=== PATIENT | female | born 1995 | race Caucasian/White ===

== ENCOUNTER 2017-11-14 17:10 | Emergency (ER) | payer OTHER ==
[~2017-11-14] VITALS: Ht 154.9 cm; Wt 70.8 kg
[~2017-11-14 17:10] MED LIST: ALBUAER2 INH
[2017-11-14 17:19] VITALS: TEMP 37; Ht 154.9 cm; Wt 70.8 kg
[2017-11-14] MEDS ORDERED: ALBUT/IPRATROP 3MG/0.5MG NEB 3 ML VIAL INH STA (17:59)
[2017-11-14] MEDS ORDERED: PSEUDOEPHEDRINE HCL 30 MG TAB PO STA (17:59)
[2017-11-14] MEDS ORDERED: METHYLPREDNISOLONE 125 MG VIAL IV STA (17:59)
[2017-11-14] MEDS ORDERED: SODIUM CHLORIDE 0.9% 1000ML 1,000 ML IV ONE (18:00)
[2017-11-14] MEDS ORDERED: BENZONATATE 100MG CAP PO ONE (18:00)
[2017-11-14] MEDS ORDERED: AMPH20CA3 PO (18:08)
[2017-11-14 18:31] LABS: BASO % 0.3 %; BASO ABS # 0.03 K/uL (0-0.2); EOS % 0.9 %; HEMATOCRIT 41.2 % (37-47); HEMOGLOBIN 14.1 g/dL (12.0-16.0); IG# 0.05 K/uL (0.00-0.02); LYMPH % 21.7 %; LYMPH ABS # 2.49 K/uL (1.2-3.4); MEAN CORPUSCULAR HEMOGLOBIN 31.5 pg (25-34); MEAN CORPUSCULAR HGB CONC 34.2 g/dl (32-36); MEAN PLATELET VOLUME 8.6 fL (7.4-10.4); MONO % 10.5 %; MONO ABS # 1.21 K/uL (0.11-0.59); NEUT % 66.2 %; NEUT ABS # 7.62 K/uL (1.4-6.5); PLATELET COUNT 279 K/uL (130-400); RED CELL DISTRIBUTION WIDTH CV 13.6 % (11.5-14.5); RED CELL DISTRIBUTION WIDTH SD 45.4 fL (36.4-46.3)
[2017-11-14 18:49] LABS: ALBUMIN 3.4 gm/dl (3.4-5.0); ALT/SGPT 22 U/L (12-78); AST/SGOT 16 U/L (15-37); BLOOD UREA NITROGEN 10 mg/dl (7-18); CALCIUM 8.7 mg/dl (8.5-10.1); CARBON DIOXIDE 27 mmol/L (21-32); CREATININE 0.69 mg/dl (0.60-1.20); GLUCOSE 109 mg/dl (70-99); LIPASE 210 U/L (73-393); POTASSIUM 3.8 mmol/L (3.5-5.1); SODIUM 140 mmol/L (136-145)
[2017-11-14 18:52] LABS: ALKALINE PHOSPHATASE 101 U/L (45-117); TOTAL PROTEIN 7.3 gm/dl (6.4-8.2)
--- NOTE | 2017-11-14 19:34 | DIAGNOSTIC IMAGING REPORT ---
ABDOMEN 2VIEW W/PA CHEST RTN HISTORY: 22 years-old Female cough, abd pain acute cough with generalized abdominal pain COMPARISON: Chest radiographs 11/05/2012 TECHNIQUE: PA view of the chest with erect and supine views of the abdomen FINDINGS: Cardiomediastinal and hilar silhouettes are within normal limits. There is no pneumothorax, pleural effusion, focal airspace consolidation or overt pulmonary edema. Bones of the chest appear grossly intact. Mild to moderate stool volume throughout the colon. The bowel gas pattern is nonobstructive. No pneumatosis or pneumoperitoneum. No urolith identified. No fracture. IMPRESSION: 1. No acute process of the chest. 2. Nonobstructive bowel gas pattern without pneumoperitoneum. The above report was generated using voice recognition software. It may contain grammatical, syntax or spelling errors. Electronically signed by: Lewis Henry M.D. 11/14/2017 7:33 PM Dictated Date/Time: 11/14/2017 7:31 PM
[2017-11-14] MEDS ORDERED: VNTHFA/IN INH (20:22)
[2017-11-14] MEDS ORDERED: BENZ100C18 PO (20:22)
[2017-11-14 20:30] VITALS: BP 120/89; PULSE 98; O2SAT 98
--- NOTE | 2017-11-15 00:12 | EMERGENCY ROOM VISIT NOTE ---
ED Visit Note First contact with patient: 17:39 Chief Complaint: Sore throat, cough and abdominal pain. History of Present Illness: Ms. Garcia is a 22-year-old white female who ambulates into the ED accompanied by her mother and multiple male friends complaining of throat pain, productive cough and lower abdominal pain. Historically patient and mother reports patient had asthma as a younger child and irritable bowel syndrome. Patient reports her throat pain started approximately 1 month ago. She describes this as an achy sensation. She rates her discomfort 7/10. Her pain is nonradiating. Her pain worsens with swallowing. She has not identified any alleviating factors related to the pain. She reports she has been using NyQuil without relief of her discomfort. Associated with her pain she reports she has a productive cough of greenish sputum. Her cough worsens with positional change and any deep inspiration. She has not identified any alleviating factors related to the cough. Associated with her cough she reports intermittently she does hear herself wheezing and feels short of breath. Lastly patient complaining of diffuse lower abdominal pain. She reports this has been ongoing but intermittent for the last month. It is not side prominent. She describes her pain as a cramping sensation. She rates this discomfort 3/10 but reports she is currently pain-free. She has not identified any aggravating or alleviating factors related to this discomfort. She has not taken any medications for this discomfort prior to arrival at the hospital. Associated with her pain she reports she has been having episodes of light brown watery stools. She denies fevers, chills, sweats, skin eruptions, skin color changes, ear drainage, painful talking, drooling, inability to swallow, neck pain/stiffness, headaches, dizziness, hemoptysis, bloody stool, black/tarry stool, urinary symptoms, back pain, vaginal bleeding, vaginal discharge. Review of Systems: As noted above in history of present illness. All body systems were reviewed and found to be negative as noted above. Past Medical History: As previously noted, attention deficit disorder. Current Medications: Adderall. Allergies to Medications: Ciprofloxacin, codeine, Bactrim and nitrofurantoin. Social History: Patient is not currently employed; she feels safe in her home environment; she admits to tobacco and alcohol use. Physical Examination: Vital Signs: Date Time Temp Pulse Resp B/P (MAP) Pulse Ox O2 Delivery O2 Flow Rate FiO2 11/14/17 20:30 98 20 120/89 98 11/14/17 19:53 100 20 121/85 97 11/14/17 17:22 98 Room Air 11/14/17 17:19 37.0 104 20 124/81 98 Room Air GENERAL: 22-year-old female in mild distress due to symptoms, nontoxic-appearing , afebrile and hemodynamically stable. NEUROLOGICAL: Awake, alert and oriented to person, place and time. Answering questions appropriately and following commands. Normal gait. Good hand eye coordination. No focal motor sensory deficits. SKIN: Warm, dry and pink. No soft tissue eruptions or trauma noted. HEENT: Atraumatic and normocephalic. Mild erythema over the frontal sinuses without tenderness and no erythema or tenderness over the maxillary sinuses. PERRLA. Sclera white and conjunctiva pink without drainage. No drainage from naris but with moderate audible congestion. Oral cavity moist and pink. Airway is patent. Uvula is midline and no abscesses were seen. Mild posterior erythema and edema without tonsillar exudates. Speech normal. No lymphadenopathy. Trachea midline. No jugular venous distention. BACK: No tenderness over the bony spine. No nuchal rigidity. Full range of motion of the cervical spine. No CVA tenderness. THORAX: Lungs sounds are clear to auscultation and decreased bilaterally primarily in the bases. Equal bilaterally with symmetrical chest wall. No wheezing, rales or rhonchi. No crepitus, tenderness, subcutaneous air or deformities noted. HEART: Regular rate and rhythm. No gallops, rubs or murmurs are appreciated. ABDOMEN: Flat, soft and nontender. Positive bowel sounds in all quadrants. No guarding, rigidity or organomegaly. EXTREMITIES: Moves all extremities well on command and with purpose. All distal neurovascular statuses are intact and equal bilaterally. No calf tenderness or cords. ED Course: Patient is assessed as noted above. Patient's medication list was reviewed. Laboratory Testing: Test 11/14/17 18:15 Range/Units White Blood Count 11.50 4.8-10.8 K/uL Red Blood Count 4.48 4.2-5.4 M/uL Hemoglobin 14.1 12.0-16.0 g/dL Hematocrit 41.2 37-47 % Mean Corpuscular Volume 92.0 80-100 fL Mean Corpuscular Hemoglobin 31.5 25-34 pg Mean Corpuscular Hemoglobin Concent 34.2 32-36 g/dl Platelet Count 279 130-400 K/uL Mean Platelet Volume 8.6 7.4-10.4 fL Neutrophils (%) (Auto) 66.2 % Lymphocytes (%) (Auto) 21.7 % Monocytes (%) (Auto) 10.5 % Eosinophils (%) (Auto) 0.9 % Basophils (%) (Auto) 0.3 % Neutrophils # (Auto) 7.62 1.4-6.5 K/uL Lymphocytes # (Auto) 2.49 1.2-3.4 K/uL Monocytes # (Auto) 1.21 0.11-0.59 K/uL Eosinophils # (Auto) 0.10 0-0.5 K/uL Basophils # (Auto) 0.03 0-0.2 K/uL RDW Standard Deviation 45.4 36.4-46.3 fL RDW Coefficient of Variation 13.6 11.5-14.5 % Immature Granulocyte % (Auto) 0.4 % Immature Granulocyte # (Auto) 0.05 0.00-0.02 K/uL Sodium Level 140 136-145 mmol/L Potassium Level 3.8 3.5-5.1 mmol/L Chloride Level 107 98-107 mmol/L Carbon Dioxide Level 27 21-32 mmol/L Anion Gap 6.0 3-11 mmol/L Blood Urea Nitrogen 10 7-18 mg/dl Creatinine 0.69 0.60-1.20 mg/dl Est Creatinine Clear Calc Drug Dose 115.0 ml/min Estimated GFR () 143.2 Estimated GFR (Non- 123.6 BUN/Creatinine Ratio 14.1 10-20 Random Glucose 109 70-99 mg/dl Calcium Level 8.7 8.5-10.1 mg/dl Total Bilirubin 0.2 0.2-1 mg/dl Direct Bilirubin < 0.1 0-0.2 mg/dl Aspartate Amino Transf (AST/SGOT) 16 15-37 U/L Alanine Aminotransferase (ALT/SGPT) 22 12-78 U/L Alkaline Phosphatase 101 45-117 U/L Total Protein 7.3 6.4-8.2 gm/dl Albumin 3.4 3.4-5.0 gm/dl Lipase 210 73-393 U/L Human Chorionic Gonadotropin, Qual NEG NEG Group A Streptococcus Screen: Negative. Culture pending. Acute Abdominal X-Ray Series: Were read by myself and the radiologist showing no acute infiltrates, effusions or pneumothorax. Normal heart silhouette and bony anatomy. Abdominal component shows nonobstructive bowel gas pattern, no pneumoperitoneum, mild to moderate stool volume throughout the colon. Patient was hydrated with normal saline, she received an albuterol/Atrovent nebulizer breathing treatments, 200 mg of Tessalon Perles by mouth for cough, 30 mg of pseudoephedrine by mouth for congestion and 125 mg of Solu-Medrol IV. Patient was reassessed multiple times during her stay in the emergency department. Patient's case was reviewed with Dr. Juárez; we agreed on diagnostic approach, treatment, disposition and plan. Patient and mother were educated about today's findings and instructed on her treatment plan; they verbalized understanding and agreement with this plan. Clinical Impression: Cough. Irritable bowel exacerbation. Decision-Making: Initially my differentiation for her cough I considered pneumonia, pulmonary embolism, pneumothorax, bronchitis, musculoskeletal disorder and for her abdominal pain I considered exacerbation of her IBS, diarrheal illness, bowel obstruction, appendicitis, and other causes. Disposition: Patient discharged home in stable condition accompanied by her mother and multiple female friend; prior to departure she was reassessed and subjectively reported she was feeling slightly better with her breathing and rated her abdominal discomfort 4/10. Plan: Patient was encouraged alternate ibuprofen and acetaminophen every 3 hours as needed for pain or fevers. Patient was encouraged use [id number] pseudoephedrine 30 mg every 6 hours for nasal/sinus congestion. Patient was prescribed an albuterol inhaler with spacer and encouraged to use 2 puffs every 4 hours while awake for 5 days and as needed for shortness of breath or severe coughing episode. Patient was prescribed Tessalon Perles 100 mg every 8 hours as needed for cough. Patient was encouraged to elevate the head of her bed and use a vaporizer/ humidifier in her bedroom. Patient was encouraged to contact her PCP for follow-up care and treatment and also referral back to gastroenterology for her irritable bowel syndrome. Patient was encouraged return the ED for worsening symptoms, uncontrolled fevers , coughing up blood, uncontrolled shortness of breath, worsening abdominal pain , bloody vomitus, bloody stools or any new/concerning symptoms.
--- NOTE | 2017-11-15 17:57 | Pharmacy Progress Note ---
ED Pharmacist Culture FollowUp Date of Service: Nov 15, 2017. Called patient regarding throat culture with Group A Strep. No answer. Left voicemail to call back.
== END 2017-11-14 20:30 | disposition home or self-care (01) ==
LOC: C.EDB 17:11 → C.EDA 20:30
DX: R05 Cough (principal); K58.9 Irritable bowel syndrome, unspecified; F90.9 Attention-deficit hyperactivity disorder, unspecified type; Z79.899 Other long term (current) drug therapy; Z72.0 Tobacco use; Z88.1 Allergy status to other antibiotic agents; Z88.5 Allergy status to narcotic agent; Z88.8 Allergy status to other drugs, medicaments and biological substances

== ENCOUNTER 2019-05-18 01:20 | Observation (INO) ==
[2019-05-18] MEDS ORDERED: LACTATED RINGER'S 1,000 ML IV PRN (02:31)
[2019-05-18] MEDS ORDERED: TERBUTALINE SULFATE 1 MG/ML VIAL SQ PRN (02:31)
--- NOTE | 2019-05-18 06:34 | Progress Note ---
Date of Service May 18, 2019 Subjective Pt resents for vaghinal pressure FHR; CAT 1 minimal ctx Ve'ft/thick post IVH aand prcardia Improved Lucky disch home Results & Data Vital Signs (Past 12 Hours) Vital Signs Temp Pulse Resp BP Pulse Ox 19 06:26 89 97 18/19 06:21 91 H 96 18/19 06:16 96 H 96 18/19 06:11 88 96 18/19 06:06 90 96 18/19 06:01 106 H 97 18/19 05:56 116 H 97 18/19 05:51 96 H 96 18/19 05:46 109 H 97 18/19 05:41 94 H 96 18/19 05:36 96 H 96 18/19 05:31 94 H 98 18/19 05:26 96 H 97 18/19 05:21 101 H 97 18/19 05:16 93 H 96 18/19 05:11 93 H 96 18/19 05:06 99 H 96 18/19 05:01 89 96 18/19 04:56 94 H 96 18/19 04:51 108 H 96 18/19 04:46 101 H 97 18/19 04:41 94 H 95 18/19 04:36 91 H 96 18/19 04:31 104 H 96 18/19 04:26 96 H 95 18/19 04:21 104 H 96 18/19 04:16 103 H 96 18/19 04:11 96 H 96 18/19 04:01 98 H 97 18/19 03:56 101 H 96 18/19 03:51 106 H 96 18/19 03:46 123 H 98 18/19 03:41 111 H 96 18/19 03:36 102 H 96 /18/19 03:32 36.9 C 100 H 18 105/55 L 18/19 03:31 103 H 98 /18/19 03:26 100 H 97 18/19 03:21 107 H 97 18/19 03:16 112 H 97 18/19 03:11 116 H 98 10/18/19 03:06 103 H 97 05/18/19 03:01 103 H 97 05/18/19 02:56 94 H 98 05/18/19 02:51 103 H 98 05/18/19 02:46 85 97 05/18/19 02:41 101 H 94 05/18/19 02:40 92 H 97 05/18/19 02:35 89 96 05/18/19 02:30 93 H 96 05/18/19 01:35 36.8 C 121 H 18 111/58 L 05/18/19 01:31 36.8 C 121 H 111/58 L
--- NOTE | 2019-05-26 05:56 | Discharge Summary ---
HISTORY OF PRESENT ILLNESS: This is a 23-year-old who presented to labor and delivery with contractions and pelvic pressure. She was examined and found to be fingertip, thick, and posterior. The patient had irregular contractions, was given IV fluids and Procardia. Contractions improved and was discharged home in stable condition on the same day. Past medical history, past surgical history, social history and family history were all reviewed. ALLERGIES: None. REVIEW OF SYSTEMS: As dictated above. LABORATORY DATA: Unremarkable. PHYSICAL EXAMINATION HEART: S1, S2, regular rhythm and rate. LUNGS: Clear to auscultation bilaterally. ABDOMEN: Gravid. NST category 1. CONDITION ON DISCHARGE: Stable. OPERATION: Observation and IV fluid hydration. DISCHARGE DIAGNOSIS: labor. PLAN ON DISCHARGE: The patient is discharged home with instructions regarding activity, diet, and followup appointment.
== END 2019-05-18 06:57 | disposition home or self-care (01) ==
LOC: 4S1 01:20 → OPB 01:20 → 4S1 01:23
DX: O60.03 Preterm labor without delivery, third trimester

== ENCOUNTER 2019-06-22 10:25 | Inpatient (IN) ==
[2019-06-22] MEDS ORDERED: OXYTOCIN 30 UNITS/500 ML BAG IV PRN ×2 (11:30→17:50)
--- NOTE | 2019-06-22 11:49 | Labor Progress Brief Note ---
Date of Service June 22, 2019 Results & Data Vital Signs (Past 12 Hours) Vital Signs Temp Pulse Resp BP 06/22/19 10:42 36.5 C 83 20 130/78
--- NOTE | 2019-06-22 11:52 | Obstetrical Progress Note ---
Date of Service June 22, 2019 Subjective Met pt and family Reviewed PNC- Pt received her PNC at [facility] FHR; CAT1 Ctx ; 4-5mins VE by nurse; 5/bulging membrane and anticipate delivery Admit Results & Data Vital Signs (Past 12 Hours) Vital Signs Temp Pulse Resp BP 06/22/19 10:42 36.5 C 83 20 130/78
[2019-06-22] MEDS ORDERED: BUTORPHANOL TARTRATE 1 MG/ML VIAL ONE (11:55)
[2019-06-22] MEDS ORDERED: BUTORPHANOL TARTRATE 1 MG/ML VIAL IV PRN (11:57)
[2019-06-22 11:59] LABS: Hematocrit (blood only) 33.7 % (37-47); Hemoglobin 11.1 g/dL (12.0-16.0); Mean Corpuscular Hemoglobin 29.2 pg (25-34); Mean Corpuscular Volume 88.7 fL (80-100); Mean Platelet Volume 8.7 fL (7.4-10.4); Platelet Count 277 K/uL (130-400); RDW Coefficient of Variation 13.5 % (11.5-14.5); RDW Standard Deviation 43.4 fL (36.4-46.3); White Blood Count 12.18 K/uL (4.8-10.8)
[2019-06-22] MEDS ORDERED: fentaNYL citrate 100 MCG/2 ML VIAL ONE (11:59)
[2019-06-22] MEDS ORDERED: ePHEDrine sulfate 50 MG/ML AMP ONE (11:59)
[2019-06-22] MEDS ORDERED: BUPIVACAINE 0.25% 30 ML VIAL ONE ×2 (11:59→21:14)
[2019-06-22] MEDS: LACTATED RINGER'S 1,000 ML IV PRN ×3 (12:00→20:57)
[2019-06-22] MEDS ORDERED: fentaNYL 2MCG/ML ROPIV 1.25MG/ML 100 ML BAG EPI ONE (12:00)
[2019-06-22 12:05] LABS: Mean Corpuscular Hgb Conc 32.9 g/dL (32-36)
[2019-06-22] MEDS ORDERED: ONDANSETRON INJ 2 MG/ML 2 ML VIAL IV PRN (12:22)
[2019-06-22] MEDS ORDERED: NALBUPHINE HCL INJ 10 MG/ML AMP IV PRN (12:22)
[2019-06-22] MEDS ORDERED: DiphenhydrAMINE HCL 50 MG/ML VIAL IV PRN (12:22)
[2019-06-22] MEDS ORDERED: ePHEDrine sulfate 50 MG/ML AMP IV PRN (12:22)
[2019-06-22] MEDS ORDERED: NALOXONE HCL 1 MG in SODIUM CHLORIDE 0.9% 1000ML 1,000 ML IV PRN (12:22)
[2019-06-22] MEDS ORDERED: NALOXONE HCL 0.4 MG/1 ML VIAL/CARP IV PRN (12:22)
--- NOTE | 2019-06-22 12:29 | Anesthesiology Consultation ---
Date of Service June 22, 2019 Assessment & Plan Chart Review Chart Review: Patient NOT seen in Pre Admission Testing and Acceptable Risk for Labor Epidural Consults Requested none ASA ASA2 Proposed Anesthesia Anesthesia Type: Labor Epidural and CSE Risk / Benefits Reviewed With: PT / POA / Parent / Guardian, Accepts Plan and Informed Consent Obtained History Height/Weight Height: 5 ft Weight: 88.952 kg Allergies Allergy/AdvReac Type Severity Reaction Status Date / Time Cipro Allergy Intermediate NAUSEA/VOMI Verified 11/14/17 17:56 TTING ciprofloxacin Allergy Intermediate NAUSEA/VOMI Verified 06/21/19 07:18 TTING nitrofurantoin Allergy Unknown urinary Verified 06/22/19 10:41 tract infections codeine AdvReac Intermediate Anaphylaxis Verified 06/22/19 10:41 sulfamethoxazole AdvReac Mild YEAST Verified 06/21/19 07:18 INFECTIONS trimethoprim AdvReac Mild YEAST Verified 06/21/19 07:18 INFECTIONS Bactrim AdvReac Unknown YEAST Verified 11/14/17 17:56 INFECTIONS Medications Home Medications Medication Instructions Recorded Confirmed Last Taken No Known Home Medications 06/12/19 06/22/19 Unknown Active Medications Generic Name Dose Route Start Last Admin Trade Name Freq PRN Reason Stop Dose Admin Butorphanol Tartrate 1 mg 06/22/19 11:57 06/22/19 12:03 Stadol IV 07/22/19 11:56 1 mg Q4 PRN Administration Pain NPO Date Last Intake of Fluids: 06/22/19 Time Last Intake of Fluids: 11:00 Date Last Intake of Solids: 06/22/19 Time Last Intake of Solids: 09:00 Past Medical History Medical History ADHD Asthma Depression GERD (gastroesophageal reflux disease) Heart murmur Helicobacter pylori infection Hx of fracture of wrist PMDD (premenstrual dysphoric disorder) Exercise / Class Metabolic Activity II 4-5 Yardwork/Stairs/Walk up hill Past Family History Family History Grandmother (Paternal) Diabetes Grandfather (Paternal) Hypertension Mother Cancer Grandfather (Maternal) Cancer Other No significant family history Past Anesthesia History No Hx of Anesthesia Complications and No Family Hx of Anesthesia Complications History of PONV No Hx of PONV and No Hx of Motion Sickness Social History Smoking Status: Former smoker tobacco type: cigarettes Smoking cigarettes per day: 2ppd Do You Dip or Chew Tobacco: No Smoking End Date: 9 months ago per patient Hx Alcohol Use: No Hx Substance Use: No substance use type: does not use Review of Systems no chest pain or sob Physical Exam Vital Signs Last Vital Signs Temp 36.5 C 06/22/19 10:42 Pulse 76 06/22/19 12:28 Resp 20 06/22/19 10:42 BP 123/76 06/22/19 12:14 Pulse Ox 94 06/22/19 12:28 ENMT Mouth: no TMJ abnormality Thyromental Distance: > or= 3.5 Finger Breadths Mallampati Class: II Neck normal visual inspection Respiratory normal respiratory effort Auscultation: lungs clear to auscultation bilaterally Cardiovascular Rate/Rhythm: regular rate and regular rhythm Musculoskeletal Spine: normal cervical ROM Neurologic moves all extremities Psychiatric Orientation: alert and oriented x 3 Testing Laboratory Results 06/22/19 11:46
--- NOTE | 2019-06-22 17:04 | Labor Progress Brief Note ---
Date of Service June 22, 2019 Results & Data Vital Signs (Past 12 Hours) Vital Signs Temp Pulse Resp BP Pulse Ox 06/22/19 17:00 69 125/62 06/22/19 16:58 77 95 06/22/19 16:53 72 96 06/22/19 16:48 83 99 06/22/19 16:44 67 104/67 06/22/19 16:43 65 96 06/22/19 16:38 71 96 06/22/19 16:33 64 96 06/22/19 16:29 77 122/73 06/22/19 16:28 70 96 06/22/19 16:23 72 97 06/22/19 16:18 70 96 06/22/19 16:13 36.7 C 64 20 108/59 L 06/22/19 16:08 71 97 06/22/19 16:03 70 97 06/22/19 15:58 71 105/63 97 06/22/19 15:53 80 99 06/22/19 15:48 74 98 06/22/19 15:44 64 111/71 06/22/19 15:43 71 97 06/22/19 15:38 77 98 06/22/19 15:33 70 98 06/22/19 15:28 75 126/90 98 06/22/19 15:23 76 96 06/22/19 15:18 74 98 06/22/19 15:14 68 20 108/60 06/22/19 15:13 65 96 06/22/19 15:08 69 97 06/22/19 15:03 72 96 06/22/19 14:58 66 125/59 L 96 06/22/19 14:53 74 99 06/22/19 14:48 67 98 06/22/19 14:43 63 119/64 97 06/22/19 14:38 66 98 06/22/19 14:33 78 98 06/22/19 14:32 77 92 06/22/19 14:28 77 115/56 L 98 06/22/19 14:23 66 97 06/22/19 14:18 66 97 06/22/19 14:13 82 99 06/22/19 14:08 95 H 96 06/22/19 14:07 36.5 C 85 20 111/59 L 06/22/19 14:03 76 99 06/22/19 14:02 97 H 91 06/22/19 14:00 36.3 C L 20 06/22/19 13:58 76 97 06/22/19 13:53 77 97 06/22/19 13:48 72 99 06/22/19 13:43 93 H 125/74 97 06/22/19 13:38 86 97 06/22/19 13:33 78 97 06/22/19 13:30 77 122/71 06/22/19 13:28 92 H 98 06/22/19 13:23 72 97 06/22/19 13:18 69 97 06/22/19 13:13 78 20 116/68 96 06/22/19 13:08 76 96 06/22/19 13:03 76 96 06/22/19 12:58 90 97 06/22/19 12:57 86 115/73 06/22/19 12:53 78 96 06/22/19 12:52 78 110/65 06/22/19 12:48 78 96 06/22/19 12:45 81 119/74 06/22/19 12:43 100 H 98 06/22/19 12:42 91 H 125/80 06/22/19 12:40 93 H 92 06/22/19 12:39 68 123/71 06/22/19 12:38 78 97 06/22/19 12:34 71 94 06/22/19 12:33 73 97 06/22/19 12:28 95 H 95 06/22/19 12:23 88 96 06/22/19 12:21 97 H 94 06/22/19 12:18 80 95 06/22/19 12:14 82 18 123/76 06/22/19 12:13 86 94 06/22/19 10:42 36.5 C 83 20 130/78
--- NOTE | 2019-06-22 17:08 | Obstetrical Progress Note ---
Date of Service June 22, 2019 Subjective Pt doing well FHR; CAT1 Ctx; Poor tracing. Minimal ctx VE; 5/70/-2 AROM: Clear IUPC: Placed Starting Pitocin augmentation Results & Data Vital Signs (Past 12 Hours) Vital Signs Temp Pulse Resp BP Pulse Ox 06/22/19 17:03 72 95 06/22/19 17:00 69 125/62 06/22/19 16:58 77 95 06/22/19 16:53 72 96 06/22/19 16:48 83 99 06/22/19 16:44 67 104/67 06/22/19 16:43 65 96 06/22/19 16:38 71 96 06/22/19 16:33 64 96 06/22/19 16:29 77 122/73 06/22/19 16:28 70 96 06/22/19 16:23 72 97 06/22/19 16:18 70 96 06/22/19 16:13 36.7 C 64 20 108/59 L 06/22/19 16:08 71 97 06/22/19 16:03 70 97 06/22/19 15:58 71 105/63 97 06/22/19 15:53 80 99 06/22/19 15:48 74 98 06/22/19 15:44 64 111/71 06/22/19 15:43 71 97 06/22/19 15:38 77 98 06/22/19 15:33 70 98 06/22/19 15:28 75 126/90 98 06/22/19 15:23 76 96 06/22/19 15:18 74 98 06/22/19 15:14 68 20 108/60 06/22/19 15:13 65 96 06/22/19 15:08 69 97 06/22/19 15:03 72 96 06/22/19 14:58 66 125/59 L 96 06/22/19 14:53 74 99 06/22/19 14:48 67 98 06/22/19 14:43 63 119/64 97 06/22/19 14:38 66 98 06/22/19 14:33 78 98 06/22/19 14:32 77 92 06/22/19 14:28 77 115/56 L 98 06/22/19 14:23 66 97 06/22/19 14:18 66 97 06/22/19 14:13 82 99 06/22/19 14:08 95 H 96 06/22/19 14:07 36.5 C 85 20 111/59 L 06/22/19 14:03 76 99 06/22/19 14:02 97 H 91 06/22/19 14:00 36.3 C L 20 06/22/19 13:58 76 97 06/22/19 13:53 77 97 06/22/19 13:48 72 99 06/22/19 13:43 93 H 125/74 97 06/22/19 13:38 86 97 06/22/19 13:33 78 97 06/22/19 13:30 77 122/71 06/22/19 13:28 92 H 98 06/22/19 13:23 72 97 06/22/19 13:18 69 97 06/22/19 13:13 78 20 116/68 96 06/22/19 13:08 76 96 06/22/19 13:03 76 96 06/22/19 12:58 90 97 06/22/19 12:57 86 115/73 06/22/19 12:53 78 96 06/22/19 12:52 78 110/65 06/22/19 12:48 78 96 06/22/19 12:45 81 119/74 06/22/19 12:43 100 H 98 06/22/19 12:42 91 H 125/80 06/22/19 12:40 93 H 92 06/22/19 12:39 68 123/71 06/22/19 12:38 78 97 06/22/19 12:34 71 94 06/22/19 12:33 73 97 06/22/19 12:28 95 H 95 06/22/19 12:23 88 96 06/22/19 12:21 97 H 94 06/22/19 12:18 80 95 06/22/19 12:14 82 18 123/76 06/22/19 12:13 86 94 06/22/19 10:42 36.5 C 83 20 130/78
[2019-06-22] MEDS: fentaNYL 2MCG/ML ROPIV 1.25MG/ML 100 ML BAG EPI PRN ×3 (19:22→21:20)
[2019-06-22] MEDS ORDERED: Nursing to Pharmacy Communication ONE (20:03)
[2019-06-22] MEDS ORDERED: fentaNYL 2MCG/ML ROPIV 1.25MG/ML 100 ML BAG EPI PRN (21:23)
[2019-06-23] MEDS ORDERED: METHYLERGONOVINE MALEATE 0.2 MG/ML AMP ONE (00:01)
[2019-06-23] MEDS ORDERED: HYDROCORTISONE ACETATE 25 MG SUPP PR PRN (00:26)
[2019-06-23] MEDS ORDERED: DIPHTHERIA/TETANUS/PERTUSSIS 0.5 ML SYR/VIAL IM ONE (00:26)
[2019-06-23] MEDS ORDERED: OXYTOCIN 30 UNITS/500 ML BAG IV PRN (00:26)
[2019-06-23] MEDS ORDERED: BISACODYL 10 MG SUPP PR PRN (00:26)
[2019-06-23] MEDS ORDERED: SUPERCREAM 0.870% 15 GM JAR EXT PRN (00:26)
[2019-06-23] MEDS ORDERED: BENZOCAINE 20% AER SPR 82.5 GM CAN EXT PRN (00:26)
[2019-06-23] MEDS ORDERED: miSOPROStoL 200 MCG TAB PR ONE (00:44)
[2019-06-23] MEDS ORDERED: METHYLERGONOVINE MALEATE 0.2 MG/ML AMP IM ONE (00:44)
[2019-06-23] MEDS ORDERED: OXYTOCIN 20 UNITS in LACTATED RINGER'S 1,000 ML IV SCH (01:00)
[2019-06-23] MEDS: IBUPROFEN 600 MG TAB PO PRN ×3 (02:26→18:12)
[2019-06-23] MEDS: DOCUSATE SODIUM 100 MG CAP PO SCH (08:15)
[2019-06-23] MEDS: PRENATAL VITAMIN 1 TAB PO SCH (08:15)
--- NOTE | 2019-06-23 08:15 | Anesthesia Procedure Note ---
Date of Service June 23, 2019 Anesthesia Post Epidural Note Vital Signs Vital Signs: Temp Pulse Resp BP Pulse Ox 37.3 C 76 18 132/76 91 06/23/19 03:05 06/23/19 03:05 06/23/19 03:05 06/23/19 03:05 06/23/19 00:23 Pain Intensity Lower Back: Pain Intensity: 4 Notes Mental Status: alert / awake / arousable and participated in evaluation Nausea / Vomiting: adequately controlled Pain: adequately controlled Airway Patency, RR, SpO2: stable & adequate BP & HR: stable & adequate Hydration State: stable & adequate Neuraxial Anesthesia: was administered and sensory block is resolving Anesthetic Complications: no major complications apparent and Pt Satisfied with anesthetic care Epidural: Removed without complications and With tip intact
[2019-06-23] MEDS: ACETAMINOPHEN 325 MG TAB PO PRN (09:11)
--- NOTE | 2019-06-23 09:17 | Obstetrical Progress Note ---
Date of Service June 23, 2019 Subjective doing well Physical Exam Constitutional: comfortable ambulating well tolerating diet tent d/c in AM Results & Data Vital Signs (Past 12 Hours) Vital Signs Temp Pulse Pulse Resp BP BP Pulse Ox 06/23/19 03:05 37.3 C 76 18 132/76 06/23/19 02:27 135/72 06/23/19 02:21 71 132/62 06/23/19 02:20 18 06/23/19 02:05 68 140/71 06/23/19 01:54 61 128/63 06/23/19 01:20 18 06/23/19 00:51 84 139/78 06/23/19 00:50 18 06/23/19 00:36 82 130/78 06/23/19 00:35 18 06/23/19 00:23 99 H 91 06/23/19 00:21 89 94 06/23/19 00:20 92 H 18 136/86 06/23/19 00:18 85 96 06/23/19 00:14 88 94 06/23/19 00:13 88 96 06/23/19 00:08 83 97 06/23/19 00:05 18 06/23/19 00:03 88 96 06/23/19 00:01 96 H 93 06/22/19 23:58 93 H 126/76 95 06/22/19 23:53 93 H 91 06/22/19 23:52 95 H 90 06/22/19 23:48 74 97 06/22/19 23:46 75 90 06/22/19 23:43 77 97 06/22/19 23:41 79 91 06/22/19 23:38 81 98 06/22/19 23:35 78 93 06/22/19 23:33 75 95 06/22/19 23:30 72 87 L 06/22/19 23:28 88 98 06/22/19 23:27 75 131/74 06/22/19 23:23 72 80 L 06/22/19 23:18 76 86 L 06/22/19 23:15 36.5 C 06/22/19 23:13 78 132/76 89 L 06/22/19 23:08 93 H 95 06/22/19 23:07 97 H 93 06/22/19 23:03 92 H 83 L 06/22/19 23:01 86 87 L 06/22/19 22:59 115 H 136/82 06/22/19 22:58 88 81 L 06/22/19 22:56 87 92 06/22/19 22:53 75 96 06/22/19 22:48 81 97 06/22/19 22:43 76 125/83 97 06/22/19 22:38 77 95 06/22/19 22:33 79 95 06/22/19 22:28 72 139/73 96 06/22/19 22:23 75 95 06/22/19 22:18 75 95 06/22/19 22:13 76 134/73 95 06/22/19 22:08 79 95 06/22/19 22:03 76 96 06/22/19 21:59 80 136/70 06/22/19 21:58 76 96 06/22/19 21:53 74 96 06/22/19 21:48 80 95 06/22/19 21:43 82 96 06/22/19 21:41 81 137/81 06/22/19 21:39 83 92 06/22/19 21:38 87 97 06/22/19 21:36 84 130/82 06/22/19 21:33 80 96 06/22/19 21:29 88 129/76 06/22/19 21:28 99 H 98 06/22/19 21:27 94 H 127/78 06/22/19 21:25 82 126/73 06/22/19 21:23 80 96 06/22/19 21:22 81 121/68 06/22/19 21:21 81 157/101 H 06/22/19 21:20 97 H 165/92 H 06/22/19 21:18 78 98
[2019-06-23 21:33] VITALS: TEMP 97.9
[2019-06-24] MEDS: IBUPROFEN 600 MG TAB PO PRN ×2 (04:46→12:25)
[2019-06-24 06:19] LABS: Hematocrit (blood only) 28.8 % (37-47); Hemoglobin 9.7 g/dL (12.0-16.0); Mean Corpuscular Hgb Conc 33.7 g/dL (32-36); Mean Corpuscular Volume 89.2 fL (80-100); Platelet Count 246 K/uL (130-400); RDW Coefficient of Variation 13.7 % (11.5-14.5); RDW Standard Deviation 44.3 fL (36.4-46.3); Red Blood Count 3.23 M/uL (4.2-5.4); White Blood Count 15.14 K/uL (4.8-10.8)
[2019-06-24 07:10] VITALS: BP 109/71; PULSE 50; O2SAT 98
[2019-06-24] MEDS: ACETAMINOPHEN 325 MG TAB PO PRN (07:48)
[2019-06-24] MEDS: DOCUSATE SODIUM 100 MG CAP PO SCH (07:48)
[2019-06-24] MEDS: PRENATAL VITAMIN 1 TAB PO SCH (07:49)
--- NOTE | 2019-06-24 10:20 | Obstetrical Progress Note ---
Date of Service June 24, 2019 Subjective doing well Physical Exam Constitutional: WD/WN, vitals as above comfortable abdomen soft, fundus firm no edema, negative Lamonte's for discharge home Results & Data Vital Signs (Past 12 Hours) Vital Signs Temp Pulse Resp BP Pulse Ox 06/24/19 07:08 36.6 C 50 L 16 109/71 98 06/23/19 23:15 36.6 C 69 18 126/80 Laboratory Results Laboratory Results - last 72 hr 06/22/19 06/24/19 11:46 06:05 WBC 12.18 H 15.14 H RBC 3.80 L 3.23 L Hgb 11.1 L 9.7 L Hct 33.7 L 28.8 L MCV 88.7 89.2 MCH 29.2 30.0 MCHC 32.9 33.7 RDW Std Deviation 43.4 44.3 RDW Coeff of Phil 13.5 13.7 Plt Count 277 246 MPV 8.7 9.0
[2019-06-24] MEDS ORDERED: BISACODYL 5 MG TABEC PO SCH (20:00)
--- NOTE | 2019-06-25 07:57 | Delivery Summary ---
DATE OF OPERATION: 06/23/2019 The patient delivered a live infant female in left occiput anterior presentation. There was no nuchal cord. Infant was delivered, placed on mother's abdomen. Cord was clamped after 1 minute. The infant's weight is pending. Apgars 8 and 9. Cord blood was obtained. The placenta was spontaneously delivered. Inspection of the perineum showed a second-degree midline laceration which was repaired in layers with 2-0 Vicryl. Rectal exam post repair shows good sphincter tone. Estimated blood loss 450 mL. Inspection of the placenta shows normal gross looking placenta. All instruments were removed from the vagina and accounted for x2 including sponges, needles and retractors. Baby and mother are doing well in recovery. There was good hemostasis. I attest to the content of the Intraoperative Record and any orders documented therein. Any exception s are noted below.
== END 2019-06-24 14:05 | disposition home or self-care (01) | DRG 807 ==
LOC: OPB 10:25 → 4S1 10:35 → 4S2 06-23 03:00